=== PATIENT | female | born 1980 ===

== ENCOUNTER 2023-11-11 06:11 | Day surgery (SDC) | payer OTHER ==
[~2023-11-11 06:11] MED LIST: SYNTHROID100 MCG
[2023-11-11] MEDS ORDERED: METRONIDAZOLE/SODIUM CHLORIDE 500 MG/100 ML PIGGYBACK IV ONE (08:26)
[2023-11-11] MEDS ORDERED: DIBUCAINE 30 GM TUBE ONE (10:39)
[2023-11-11] MEDS ORDERED: HEMOSTATIC MATRIX 1 KIT KIT TOP ONE (10:39)
[2023-11-11] MEDS ORDERED: BUPIVACAINE HCL/MPF 0.5% 30ML VIAL ONE (10:39)
[2023-11-11] MEDS ORDERED: BUPIVACAINE LIPOSOME/PF 266 MG/20 ML VIAL IJ ONE (10:43)
[2023-11-11] MEDS ORDERED: TRIAMCINOLONE ACETONIDE 40 MG/ML VIAL ONE (10:43)
[2023-11-11] MEDS ORDERED: POVIDONE-IODINE 118 ML BOTT TOP ONE (10:44)
== END 2023-11-11 16:30 | disposition home or self-care (01) ==
LOC: CIR.AMB 06:11
PROVIDERS: ATTEND Colon & Rectal Surgery
DX: K64.2 Third degree hemorrhoids (principal); K62.2 Anal prolapse; K64.4 Residual hemorrhoidal skin tags; E03.9 Hypothyroidism, unspecified